=== PATIENT | male | born 1985 | race Two or more races ===

== ENCOUNTER 2016-07-08 20:49 | Emergency (ER) | payer BC ==
[~2016-07-08] VITALS: Ht 182.9 cm; Wt 97.5 kg
[2016-07-08 20:44] VITALS: BP 124/78
[2016-07-08] MEDS ORDERED: Famotidine 20 MG/ 2ML VIAL IVP ONE (21:00)
[2016-07-08] MEDS ORDERED: Solu-MEDROL 125mg Inj IVP ONE (21:00)
[2016-07-08] MEDS ORDERED: PREDNISONE20 MG ORAL (21:45)
[2016-07-08] MEDS ORDERED: PEPCID20 MG ORAL (21:45)
[2016-07-08] MEDS ORDERED: BENADRYL25 MG ORAL (21:45)
[2016-07-08] MEDS ORDERED: EPIPEN 2-P0.3 MG/0.3 IM (21:55)
[2016-07-08 22:00] VITALS: BP 124/78
--- NOTE | 2016-07-09 14:17 | Emergency Room Report ---
History of Present Illness General Chief Complaint: Allergic Reaction Source: Patient Present Illness HPI Patient is a 30-year-old male who presented after a the acute onset of itchy skin rash and difficulty breathing. The patient had some seafood immediately preceding the rash as well as some other food at dinner. Patient had had no prior history of allergies to seafood however his family members have had similar reaction to shrimp. Patient denied any fever. He had been treated with Benadryl IV by paramedics and was brought to the hospital for further evaluation. Allergies: Uncoded Allergies: SEAFOOD (Allergy, Unknown, 07/08/16) Patient History Reviewed Nursing Documentation: PMH: Agreed, PSxH: Agreed Nursing Documentation-PMH Past Medical History: No Stated History Review of Systems All Other Systems: negative except mentioned in HPI Physical Exam Vital Signs Date Time Temp Pulse Resp B/P Pulse Ox O2 Delivery O2 Flow Rate FiO2 07/08/16 20:38 98.4 110 19 124/78 98 Room Air General Appearance: well appearing, no apparent distress, alert, GCS 15 Head: normocephalic, atraumatic ENT: hearing grossly normal, normal voice Neck: full range of motion, supple Respiratory: no respiratory distress, speaking full sentences Gastrointestinal: normal inspection, normal bowel sounds, non tender, soft, no mass Musculoskeletal: no calf tenderness Neurologic: alert, oriented x3, responsive, 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 Differential diagnosis included was not limited to anaphylaxis, Fischer-Flaco syndrome, allergic reaction, angioedema among others. The patient appeared to have some urticaria which showed reportedly had been improving since the patient was given Benadryl by EMS. The patient was given IV Solu-Medrol as well as Pepcid. The patient is advised to recheck in the next few days with own physician. The patient was advised to continue taking Benadryl as well as Pepcid. He was advised not to eat shrimp. Patient was given and a prescription for EpiPen. The patient is advised to follow up with primary care doctor in 1-2 days. Patient is advised to return if any worsening condition or if any changes in status that are concerning. Last Vital Signs Date Time Temp Pulse Resp B/P Pulse Ox O2 Delivery O2 Flow Rate FiO2 07/08/16 22:00 98.4 110 19 124/78 98 Room Air Status: improved Disposition: HOME, SELF-CARE Condition: Stable Scripts Epinephrine (Epipen 2-Yfn) 0.3 Mg/0.3 Ml Auto.injct 0.3 MG IM ONCE, #1 EA Prov: Oni Newell 07/08/16 Diphenhydramine Hcl* (BENADRYL*) 25 Mg Capsule 25 MG ORAL Q6H Y for Itching, #30 CAP Prov: Oni Newell 07/08/16 Famotidine (PEPCID) 20 Mg Tablet 20 MG ORAL DAILY, #7 TAB 0 Refills Prov: Oni Newell 07/08/16 Prednisone* (PREDNISONE*) 20 Mg Tablet 60 MG ORAL DAILY, #12 TAB Prov: Oni Newell 07/08/16 Referrals: NOT CHOSEN IPA/MD,REFERRING Patient Instructions: Oni Marte Jul 09, 2016 14:17
== END 2016-07-08 22:00 | disposition home or self-care (01) ==
LOC: EDBD 20:49 → EMR 21:00
DX: T78.40XA Allergy, unspecified, initial encounter (principal); Z91.013 Allergy to seafood; X58.XXXA Exposure to other specified factors, initial encounter; Y92.9 Unspecified place or not applicable; Y99.8 Other external cause status
CPT/HCPCS: 96374; 96375; 99284; J2930; S0028